=== PATIENT | female | born 1985 | race Asian ===

== ENCOUNTER 2018-08-12 14:55 | Emergency (ER) | payer OTHER ==
[~2018-08-12] VITALS: Ht 162.6 cm; Wt 68.0 kg
[2018-08-12 15:08] VITALS: BP_SYST 131
[2018-08-12] MEDS ORDERED: KETOROLAC TROMETHAMINE 30 MG VIAL IM ONE (16:00)
[2018-08-12 16:27] VITALS: BP_SYST 125
== END 2018-08-12 16:27 | disposition home or self-care (01) ==
LOC: SED 14:55
DX: S39.012A Strain of muscle, fascia and tendon of lower back, initial encounter (principal); S16.1XXA Strain of muscle, fascia and tendon at neck level, initial encounter; R03.0 Elevated blood-pressure reading, without diagnosis of hypertension; V43.52XA Car driver injured in collision with other type car in traffic accident, initial encounter; Y93.89 Activity, other specified; Y92.410 Unspecified street and highway as the place of occurrence of the external cause; Y99.8 Other external cause status
CPT/HCPCS: 81025; 96372; 99283; J1885

== ENCOUNTER 2019-05-22 09:45 | Emergency (ER) | payer OTHER ==
[~2019-05-22] VITALS: Ht 162.6 cm; Wt 76.2 kg
[2019-05-22 09:50] VITALS: BP_SYST 154
[2019-05-22] MEDS ORDERED: SUMAtriptan SUCCINATE 6 MG/0.5 ML VIAL SUBCUT ONE (10:15)
[2019-05-22] MEDS ORDERED: HYDROcodone/ACETAMIN 5-325 MG TAB (NORCO/ VICODIN) PO ONE (11:00)
[2019-05-22 12:05] VITALS: BP_SYST 154
== END 2019-05-22 18:48 | disposition home or self-care (01) ==
LOC: SED 09:45
DX: S41.112A Laceration without foreign body of left upper arm, initial encounter (principal); G43.909 Migraine, unspecified, not intractable, without status migrainosus; X58.XXXA Exposure to other specified factors, initial encounter; Y93.89 Activity, other specified; Y92.89 Other specified places as the place of occurrence of the external cause; Y99.8 Other external cause status
CPT/HCPCS: 12001; 96372; 99283; J3030; J7030

== ENCOUNTER 2019-05-22 17:06 | Emergency (ER) | payer OTHER ==
[~2019-05-22] VITALS: Ht 162.6 cm; Wt 76.2 kg
[2019-05-22 17:11] VITALS: BP_SYST 127
--- NOTE | 2019-05-22 17:20 | NUR ---
POLLO Aguilar at bedside examining patient.
--- NOTE | 2019-05-22 17:20 | NUR ---
patient arrived BLS from home AOx4 with c/o numbness and SOB after taking naproxen. patient stated she called 911 right away. She felt like she was having an allergic reaction. patient denies difficulties swallowing. patient has no tongue swelling and no rash/itching of any kind. no other compalint or injury at this time.
--- NOTE | 2019-05-22 17:21 | NUR ---
Patient to ER bed H1 to gown for evaluation. Side rails up.
[2019-05-22] MEDS ORDERED: DIPHENHYDRAMINE INJ 50 MG/ML VIAL IVP ONE (17:30)
[2019-05-22] MEDS ORDERED: NACL 0.9% 1,000 ML IV ONE (17:30)
[2019-05-22] MEDS ORDERED: LORazepam 2 MG/ML VIAL (FOR ER USE) IVP ONE (17:30)
--- NOTE | 2019-05-22 17:54 | NUR ---
Pt resting comfortably in H1 bed. Pt tolerating fluids and medication well. no additional complaints at this time
[2019-05-22 18:50] VITALS: BP_SYST 120
--- NOTE | 2019-05-22 18:50 | NUR ---
Patient given written and verbal discharge instructions and verbalizes understanding. ER MD discussed with patient the results and treatment provided. Patient in stable condition. ID arm band removed. Rx of zero given. Patient educated on pain management and to follow up with PMD. Pain Scale 3/10 Opportunity for questions provided and answered. Medication side effect fact sheet provided.
== END 2019-05-22 18:50 | disposition home or self-care (01) ==
LOC: SED 17:06
DX: F41.9 Anxiety disorder, unspecified (principal)
CPT/HCPCS: 96374; 96375; 99283; J1200; J2060; J7030; 99284

== ENCOUNTER 2020-08-12 13:34 | Emergency (ER) | payer MEDICAID, OTHER ==
[~2020-08-12] VITALS: Ht 162.6 cm; Wt 72.6 kg
[2020-08-12 13:34] VITALS: BP_SYST 134
[2020-08-12 14:50] LABS: CREATININE 0.66 mg/dL (0.55-1.30); POTASSIUM 3.8 mmol/L (3.5-5.1)
[2020-08-12 14:56] LABS: ALBUMIN 4.1 g/dL (3.4-4.8); TOTAL BILIRUBIN 0.3 mg/dL (0.0-1.0)
[2020-08-12 15:40] VITALS: BP_SYST 131
== END 2020-08-12 15:40 | disposition home or self-care (01) ==
LOC: SED 13:34
DX: R20.2 Paresthesia of skin (principal); G43.909 Migraine, unspecified, not intractable, without status migrainosus; Z90.49 Acquired absence of other specified parts of digestive tract; Z91.040 Latex allergy status
CPT/HCPCS: 36415; 70450-TC; 80053; 81002; 81025; 93005; 99285

== ENCOUNTER 2022-06-29 08:01 | Emergency (ER) | payer MEDICAID ==
[~2022-06-29] VITALS: Ht 162.6 cm; Wt 72.6 kg
[2022-06-29 08:17] VITALS: BP_SYST 136
--- NOTE | 2022-06-29 08:19 | NUR ---
Patient to ER bed 3 to gown for evaluation. Side rails up. Report given to HUMA
[2022-06-29] MEDS ORDERED: ASPIRIN 81 MG TAB.CHEW PO ONE (09:00)
[2022-06-29] MEDS ORDERED: KETOROLAC TROMETHAMINE 60 MG/2 ML VIAL IM ONE (09:00)
--- NOTE | 2022-06-29 09:00 | NUR ---
patient in room aaox4 speech clear and coherent, move all extremities, c/o left chest disconfort, awaiting for edp for initial assessment.
[2022-06-29 09:10] LABS: BASOPHILS # (AUTO) 0.1 K/uL (0.0-0.2); BASOPHILS % (AUTO) 1.5 % (0.0-2.0); EOSINOPHILS # (AUTO) 0.4 K/uL (0.0-0.4); EOSINOPHILS % (AUTO) 6.8 % (0.0-4.0); HEMATOCRIT 39.6 % (36-48); LYMPHOCYTES # (AUTO) 1.5 K/uL (1.0-5.5); LYMPHOCYTES % (AUTO) 28.6 % (20.5-51.5); MEAN CORPUSCULAR VOLUME 87 fL (79.0-98.0); MONOCYTES # (AUTO) 0.3 K/uL (0.0-1.0); MONOCYTES % (AUTO) 4.8 % (1.7-9.3); NEUTROPHILS # (AUTO) 3.1 K/uL (1.8-7.7); NEUTROPHILS % (AUTO) 58.3 % (40.0-70.0); PLATELET COUNT (AUTO) 303 K/uL (130-430); RED BLOOD CELL COUNT(AUTO) 4.54 MIL/uL (4.2-6.2); RED CELL DISTRIBUTION WIDTH 13.6 % (9.0-15.0); WHITE BLOOD COUNT (AUTO) 5.3 K/uL (4.8-10.8)
[2022-06-29 09:39] LABS: ANION GAP 4 (5-15); CALCIUM 9.4 mg/dL (8.4-11.0); CHLORIDE 100 mmol/L (98-107); CREATININE 0.83 mg/dL (0.55-1.30); GLUCOSE 113 mg/dL (70-99); UREA NITROGEN, BLOOD 10 mg/dL (8-21)
[2022-06-29 09:48] LABS: ALANINE AMINOTRANSFERASE 40 U/L (12-78); ALBUMIN 4.1 g/dL (3.4-4.8); ASPARTATE AMINOTRANSFERASE 19 U/L (10-37); TOTAL BILIRUBIN 0.4 mg/dL (0.0-1.0)
[2022-06-29] MEDS ORDERED: IBUP-2604 PO (09:56)
--- NOTE | 2022-06-29 10:00 | NUR ---
edp seen patient with order wei out.
[2022-06-29 10:10] LABS: GFR AFRICAN AMERICAN 100 mL/min (>90)
--- NOTE | 2022-06-29 11:07 | NUR ---
all result back, edp reassess patient and d/c home with instruction.
[2022-06-29 11:10] VITALS: BP_SYST 132
--- NOTE | 2022-06-29 11:11 | NUR ---
Patient given written and verbal discharge instructions and verbalizes understanding. ER MD discussed with patient the results and treatment provided. Patient in stable condition. ID arm band removed. IV catheter removed intact and dressing applied, no active bleeding. Rx of ibuprofen given. Patient educated on pain management and to follow up with PMD. Pain Scale . Opportunity for questions provided and answered. Medication side effect fact sheet provided. LEFT ER IN GOOD STABLE CONDITION.
== END 2022-06-29 11:11 | disposition home or self-care (01) ==
LOC: SED 08:01
DX: M94.0 Chondrocostal junction syndrome [Tietze] (principal); R07.9 Chest pain, unspecified; Z91.040 Latex allergy status; Z79.899 Other long term (current) drug therapy
CPT/HCPCS: 99285; 71045; 80053; 83880; 85025; 85379; 84484; 36415; 93005; 96372; J1885